=== PATIENT | female | born 1990 | race African-American/Black ===

== ENCOUNTER 2020-04-16 07:29 | Inpatient (IN) | payer OTHER, MEDICAID ==
[~2020-04-16] VITALS: Ht 154.9 cm; Wt 70.3 kg
[2020-04-16 07:43] VITALS: BP 130/86
[2020-04-16 08:07] LABS: ABSOLUTE BASOPHILS 0.1 thou/uL (0.0-0.2); ABSOLUTE EOSINOPHILS 0.1 thou/uL (0.0-0.7); ABSOLUTE LYMPHOCYTES 2.6 thou/uL (0.8-5.3); ABSOLUTE MONOCYTES 0.4 thou/uL (0.0-1.2); ABSOLUTE NEUTROPHILS 4.3 thou/uL (1.6-8.1); BASOPHILS 0.8 %; EOSINOPHILS 0.9 %; HEMATOCRIT 41.8 % (37.0-47.0); HEMOGLOBIN 14.4 gm/dL (12.0-15.0); LYMPHOCYTES 34.5 %; MCH 30.4 pg (26.0-34.0); MCHC 34.6 g/dL (28.0-37.0); MONOCYTES 5.8 %; MPV 9.7 fl. (7.2-11.1); NUCLEATED RBCS 0 /100WBC; PLATELET COUNT* 176 thou/uL (150-400); RBC 4.75 mil/uL (4.20-5.00); RDW-CV 14.9 % (10.5-14.5); WBC 7.5 thou/uL (4.0-11.0)
[2020-04-16 08:16] LABS: CALCIUM 8.5 mg/dL (8.5-10.1); POTASSIUM 3.4 mmol/L (3.5-5.1)
[2020-04-16 08:27] LABS: ALBUMIN 3.4 g/dL (3.4-5.0); TOTAL BILIRUBIN 0.3 mg/dL (<0.1-1.0); TOTAL PROTEIN 7.4 g/dL (6.4-8.2)
[2020-04-16 08:56] LABS: URINE BILIRUBIN NEGATIVE (Negative); URINE BLOOD 2+ (Negative); URINE CLARITY CLEAR; URINE COLOR YELLOW; URINE GLUCOSE-RANDOM NEGATIVE (Negative); URINE KETONES NEGATIVE (Negative); URINE LEUKOCYTES-REFLEX NEGATIVE (Negative); URINE NITRITE-REFLEX NEGATIVE (Negative); URINE PROTEIN NEGATIVE (Negative); URINE SPECIFIC GRAVITY >= 1.030 (1.005-1.030); URINE UROBILINOGEN 0.2 E.U./dl (0.2-1.0)
[2020-04-16 09:18] LABS: SQUAMOUS 0-3 Few /LPF (0-3)
[2020-04-16 09:19] LABS: CASTS None Seen /LPF (None Seen); CRYSTALS None Seen /LPF (None Seen); MUCUS >6 Heavy strn/LPF (None Seen); URINE RBC 3-10 Few /HPF (0-2); URINE WBC-REFLEX 0-5 Rare /HPF (0-5)
--- NOTE | 2020-04-16 10:03 | EKG ---
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: : 1990 Requested By: Conrad Farnsworth Order Number: [id number] MD: Nick Lowery Measurements Intervals [place] Rate: 129 P: 55 [place]: 131 QRS: -15 QRSD: 76 T: -75 QT: 368 QTc: 540 Interpretive Statements Sinus tachycardia Borderline left axis deviation Possible anteroseptal and inferior scars Abnrm T, consider ischemia, anterolateral lds Prolonged QT interval No previous ECG available for comparison Electronically Signed On 04-16-2020 10:02:52 CDT by Nick Lowery [email or web address] <ELECTRONICALLY SIGNED> By: Nick Lowery MD, FAC 04/16/20 1002 0 08 Nick Lowery MD, [facility] /EPI
[2020-04-16 13:35] VITALS: BP 119/84
[2020-04-16 17:30] VITALS: BP 142/95
[2020-04-16 19:30] VITALS: BP 131/91
[2020-04-17 04:14] LABS: HEMATOCRIT 39.6 % (37.0-47.0); HEMOGLOBIN 13.7 gm/dL (12.0-15.0); MCH 30.6 pg (26.0-34.0); MCHC 34.6 g/dL (28.0-37.0); MCV 88.6 fL (80.0-100.0); MPV 9.4 fl. (7.2-11.1); RBC 4.47 mil/uL (4.20-5.00); RDW-CV 15.1 % (10.5-14.5); WBC 7.7 thou/uL (4.0-11.0)
[2020-04-17 05:04] LABS: CALCIUM 8.4 mg/dL (8.5-10.1); CREATININE 0.7 mg/dL (0.6-1.3); MAGNESIUM 1.7 mg/dL (1.8-2.4); POTASSIUM 3.6 mmol/L (3.5-5.1); TOTAL BILIRUBIN 0.5 mg/dL (<0.1-1.0); TOTAL PROTEIN 6.7 g/dL (6.4-8.2)
[2020-04-17 08:00] VITALS: BP 121/89
[2020-04-17 08:08] VITALS: BP 120/86
--- NOTE | 2020-04-17 11:17 | 2DMMODE ---
[place] [address] 2 D/M-MODE ECHOCARDIOGRAM Name: ANASTASIIA PALMER Room: [address] IN [facility]#: [id number] Admission: 04/16/20 Attend Phys: Irving Hutchinson Discharge: Date of : 89 Date of Service: 04/17/20 1116 Report #: [id number] THIS REPORT FOR: cc: FAM - No family physician/PCP JOSE R - No family physician/PCP Nick Lowery MD [facility] ~ APPROVED REPORT Study performed: 04/16/2020 14:53:44 EXAM: Comprehensive 2D, Doppler, and color-flow Echocardiogram Patient Location: In-Patient Room #: er Status: routine BSA: 1.69 HR: 120 bpm BP: 119/84 mmHg Rhythm: NSR Other Information Study Quality: Good Indications Dyspnea 2D Dimensions IVSd: 8.51 (7-11mm) LVOT Diam: 18.23 (18-24mm) LVDd: 68.09 mm PWd: 8.36 (7-11mm) Ascending Ao: 25.27 (22-36mm) LVDs: 57.41 (25-40mm) Aortic Root: 22.81 mm Aortic Valve AoV Peak Jayy.: 1.06 m/s AO Peak Gr.: 4.45 mmHg LVOT Max P.87 mmHg AO Mean Gr.: 2.45 mmHg LVOT Mean P.81 mmHg LVOT Max V: 0.98 m/s AO V2 VTI: 12.47 cm LVOT Mean V: 0.61 m/s SILVIA (VTI): 2.13 cm2 LVOT V1 VTI: 10.17 cm Mitral Valve E/A Ratio: 1.15 MV Decel. Time: 140.34 ms MV E Max Jayy.: 1.66 m/[place] [address] 2 D/M-MODE ECHOCARDIOGRAM Name: ANASTASIIA PALMER Room: [address] .R.#: [id number] Admission: 04/16/20 Attend Phys: Irving Hutchinson Discharge: Date of : 89 Date of Service: 04/17/20 1116 Report #: [id number] MV PHT: 40.70 ms MVA (PHT): 5.41 cm2 TDI E/Lateral E': 15.09 E/Medial E': 15.09 Medial E' Jayy.: 0.11 m/s Lateral E' Jayy.: 0.11 m/s Pulmonary Valve PV Peak Jayy.: 1.42 m/s PV Peak Gr.: 8.11 mmHg Tricuspid Valve RAP Estimate: 5.00 mmHg TR Peak Gr.: 37.55 mmHg RVSP: 42.00 mmHg PA Pressure: 42.00 mmHg Left Ventricle Left ventricle is moderate to severely dilated. There is diffuse severe hypokinesis of left ventricular systolic function There is normal left ventricular wall thickness. Left ventricular ejection fraction is moderate to severely decreased. LVEF is 25-30%. The left ventricular diastolic function is normal. Right Ventricle The right ventricle is normal size. The right ventricular systolic function is normal. Atria Left atrium is moderately dilated. The right atrium size is normal. Aortic Valve Mild aortic valve sclerosis. No aortic regurgitation is present. There is no aortic valvular stenosis. Mitral Valve The mitral valve is normal in structure. Moderate to severe mitral regurgitation No evidence of mitral valve stenosis. Tricuspid Valve The tricuspid valve is normal in structure. Trace tricuspid regurgitation. Moderate pulmonary hypertension. Pulmonic Valve The pulmonary valve is normal in structure. [place] [address] 2 D/M-MODE ECHOCARDIOGRAM Name: ANASTASIIA PALMER Room: [address] IN [facility].#: [id number] Admission: 04/16/20 Attend Phys: Irving Hutchinson Discharge: Date of : 89 Date of Service: 04/17/20 1116 Report #: [id number] Great Vessels The aortic root is normal in size. IVC is normal in size and collapses >50% with inspiration. Pericardium There is no pericardial effusion. <Conclusion> Left ventricle is moderate to severely dilated. Left ventricular ejection fraction is moderate to severely decreased. LVEF is 25-30%. The right ventricle is normal size. Left atrium is moderately dilated. The right atrium size is normal. Mild aortic valve sclerosis. No aortic regurgitation is present. There is no aortic valvular stenosis. The mitral valve is normal in structure. Moderate to severe mitral regurgitation No evidence of mitral valve stenosis. The tricuspid valve is normal in structure. Trace tricuspid regurgitation. Moderate pulmonary hypertension. IVC is normal in size and collapses >50% with inspiration. There is no pericardial effusion. There is diffuse severe hypokinesis of left ventricular systolic function <ELECTRONICALLY SIGNED> By: Nick Lowery MD, FACC 04/17/20 1116 15 15 Nick Lowery MD, FACC /INF
[2020-04-17 16:16] VITALS: BP 110/77
[2020-04-17 19:36] LABS: CALCIUM 8.7 mg/dL (8.5-10.1); MAGNESIUM 1.7 mg/dL (1.8-2.4); POTASSIUM 3.5 mmol/L (3.5-5.1)
[2020-04-17 20:00] VITALS: BP 112/78
[2020-04-18] VITALS: BP 107/76
[2020-04-18 04:00] VITALS: BP 91/59
[2020-04-18 04:59] LABS: HEMATOCRIT 38.5 % (37.0-47.0); HEMOGLOBIN 13.4 gm/dL (12.0-15.0); MCH 31.1 pg (26.0-34.0); MCHC 34.9 g/dL (28.0-37.0); MPV 9.5 fl. (7.2-11.1); RBC 4.32 mil/uL (4.20-5.00); RDW-CV 15.1 % (10.5-14.5); WBC 4.4 thou/uL (4.0-11.0)
[2020-04-18 05:12] LABS: CALCIUM 8.5 mg/dL (8.5-10.1); CREATININE 0.8 mg/dL (0.6-1.3); MAGNESIUM 1.9 mg/dL (1.8-2.4); POTASSIUM 3.4 mmol/L (3.5-5.1)
[2020-04-18 08:00] VITALS: BP 100/72
--- NOTE | 2020-04-18 09:24 | CON ---
[address] [place] [address] CONSULTATION Name: SPENCERANASTASIIA ACEVEDO Room: [address] IN M.R.#: [id number] Admission: 04/16/20 Attend Phys: Irving Man, Discharge: Date of : [birth year] Report #: [id number] THIS REPORT FOR: //name// cc: JOSE R Zazueta family physician/PCP JOSE R Zazueta family physician/PCP ~ THIS REPORT FOR: //name// CC: JOSE R physician/PCP [facility] Irving Man INDICATION: Heart failure. HISTORY OF PRESENT ILLNESS: The patient is a very pleasant 30-year-old French woman who is now living in [place]. She had a daughter 4 months ago. She has a 3-year-old son at home. She had no problems with her . The patient reports orthopnea and paroxysmal nocturnal dyspnea as well as dyspnea on exertion for the past 3-4 days. She is not having stanton chest pain. Chest x-ray shows cardiomegaly and pulmonary vascular congestion. NT-proBNP is elevated at 1700. She has had partial relief of her shortness of breath with a single shot of IV Lasix. PAST MEDICAL HISTORY: Significant only for her 2 deliveries 3 years ago and 4 months ago. She denies any other medical conditions. She is on no medications. ALLERGIES: She was allergic to something she received around the time of her delivery 4 months ago, but was unsure of what medication this was. FAMILY HISTORY: Noncontributory. SOCIAL HISTORY: The patient is . There is no alcohol or tobacco use. She has 2 children at home. REVIEW OF SYSTEMS: A 14-point review of systems is positive for cough, dyspnea on exertion, orthopnea, paroxysmal nocturnal dyspnea, anemia with , otherwise unremarkable. PHYSICAL EXAMINATION: VITAL SIGNS: Blood pressure 134/94, pulse is 130. GENERAL: This is a somewhat anxious young lady in no physical distress. HEENT: Head is normocephalic, atraumatic. Extraocular muscles intact. Mucous membranes are moist. NECK: Shows jugular venous distention. There are no carotid bruits. CHEST: Reveals bilateral crackles to the mid lung gaitan. CARDIAC: Reveals a tachycardic rhythm that is regular. I do not appreciate obvious [place] [address] CONSULTATION Name: ANASTASIIA PALMER Room: [address] IN [facility].#: [id number] Admission: 04/16/20 Attend Phys: Irving Man, Discharge: Date of : [birth year] Report #: [id number] ABDOMEN: Reveals normal bowel sounds. The abdomen is soft, nontender. EXTREMITIES: Shows no edema. Peripheral pulses are 2+ and easily palpable. SKIN: Dry. LABORATORY DATA: A 12-lead EKG shows sinus tachycardia without acute ST or T-wave abnormality. Chest x-ray shows cardiomegaly with pulmonary vascular congestion. Labs are reviewed. Electrolytes are essentially within normal limits with the exception of a potassium of slightly low at 3.4. AST is slightly elevated at 74, ALT is slightly elevated at 79. Troponins are unremarkable. NT-proBNP was 1466. Hemoglobin 14.4, white count 7.5, platelet count 176,000. IMPRESSION AND RECOMMENDATIONS: 1. Acute heart failure, likely systolic. I believe she has an underlying cardiomyopathy. We will initiate medical treatment with carvedilol and losartan. Continue Lasix for symptomatic relief of shortness of breath and volume overload. Echocardiogram ordered and pending. 2. Tachycardia due to decompensated heart failure. We will try to slowly bring down heart rate with low dose beta nicko. 3. by approximately 4 months. She reports her delivery was essentially unremarkable with the exception of some anemia, which is now corrected after 2 iron infusions. <ELECTRONICALLY SIGNED> By: Néstor Neumann MD, FACC 04/18/20 0924 1133 1152Néstor Neumann MD, FACC /nt
[2020-04-18 12:00] VITALS: BP 110/72
--- NOTE | 2020-04-18 17:42 | EKG ---
[place] [address] ELECTROCARDIOGRAM REPORT Name: ANASTASIIA PALMER Room: [address] ADM IN M.R.#: [id number] Admission: 04/16/20 Attend Phys: Irving Hutchinson Discharge: Date of : 89 Date of Service: 04/18/20 1500 Report #: [id number] THIS REPORT FOR: //name// [facility] Test Date: 2020-04-18 Test Time: 15:00:11 Pat Name: ANASTASIIA PALMER Department: Room: [address] Gender: F Cutter In: : 1990 Requested By: Wes Maritn Order Number: [id number] Juan Carlos MD: Néstor Neumann Measurements Intervals [place] Rate: 105 P: 56 [place]: 144 QRS: -14 QRSD: 86 T: 45 QT: 358 QTc: 474 Interpretive Statements Sinus tachycardia Consider right atrial enlargement Abnormal Q suggests inferior infarct Abnrm T, consider ischemia, anterolateral lds Compared to ECG 04/16/2020 08:11:36 Myocardial infarct finding now present Prolonged QT interval no longer present Possible ischemia still present Electronically Signed On 04-18-2020 17:42:13 CDT by Néstor Neumann [email or web address] <ELECTRONICALLY SIGNED> By: Néstor Neumann MD, FACC 04/18/20 1742 1500 1500 Néstor Neumann MD, FAC /EPI
[2020-04-18 20:00] VITALS: BP 106/79
[2020-04-19] VITALS: BP 99/67
[2020-04-19 04:00] VITALS: BP 93/58
[2020-04-19 05:13] LABS: ABSOLUTE EOSINOPHILS 0.1 thou/uL (0.0-0.7); ABSOLUTE LYMPHOCYTES 1.6 thou/uL (0.8-5.3); ABSOLUTE MONOCYTES 0.3 thou/uL (0.0-1.2); ABSOLUTE NEUTROPHILS 2.1 thou/uL (1.6-8.1); BASOPHILS 0.8 %; EOSINOPHILS 1.5 %; HEMATOCRIT 39.2 % (37.0-47.0); HEMOGLOBIN 13.8 gm/dL (12.0-15.0); LYMPHOCYTES 38.3 %; MCH 31.1 pg (26.0-34.0); MCHC 35.2 g/dL (28.0-37.0); MCV 88.2 fL (80.0-100.0); MONOCYTES 7.6 %; MPV 9.4 fl. (7.2-11.1); NUCLEATED RBCS 0 /100WBC; PLATELET COUNT* 154 thou/uL (150-400); POLYS 51.8 %; RBC 4.44 mil/uL (4.20-5.00); RDW-CV 14.5 % (10.5-14.5); WBC 4.1 thou/uL (4.0-11.0)
[2020-04-19 05:32] LABS: ALBUMIN 3.3 g/dL (3.4-5.0); CALCIUM 8.7 mg/dL (8.5-10.1); CREATININE 0.9 mg/dL (0.6-1.3); POTASSIUM 3.7 mmol/L (3.5-5.1); TOTAL BILIRUBIN 0.5 mg/dL (<0.1-1.0); TOTAL PROTEIN 7.4 g/dL (6.4-8.2)
[2020-04-19 09:08] VITALS: BP 113/75
[2020-04-19] MEDS ORDERED: CARVEDILOL12.5 MG PO (09:56)
[2020-04-19] MEDS ORDERED: LASIX 40 MG TAB40 MG PO (09:56)
[2020-04-19] MEDS ORDERED: COZAAR 50 MG TA50 M1 PO (09:56)
[2020-04-19] MEDS ORDERED: KLOR-CON 10 ER10 MEQ PO (09:57)
[2020-04-19] MEDS ORDERED: POTASSIUM20 PO (11:47)
[2020-04-19] MEDS ORDERED: LASIX 40 MG TAB40 M1 PO (11:47)
[2020-04-19 12:11] VITALS: BP 113/75
[2020-04-19 13:41] VITALS: BP 86/66
== END 2020-04-19 13:53 | disposition home or self-care (01) | DRG 291 ==
LOC: M.ERS 07:29 → M.2W 09:36 → M.TBA-ER 09:36 → M.2W 04-17 08:49
PROVIDERS: Emergency Medicine Emergency Medical Services; Internal Medicine; ADMIT Family Medicine; ATTEND Family Medicine
DX: I11.0 Hypertensive heart disease with heart failure (principal); J96.01 Acute respiratory failure with hypoxia; O99.43 Diseases of the circulatory system complicating the puerperium; N39.0 Urinary tract infection, site not specified; I42.0 Dilated cardiomyopathy; Z20.828 Contact with and (suspected) exposure to other viral communicable diseases; E86.0 Dehydration; I34.0 Nonrheumatic mitral (valve) insufficiency; I50.9 Heart failure, unspecified; Z79.899 Other long term (current) drug therapy

== ENCOUNTER → 2020-05-03 | Outpatient (CLI) | payer OTHER, MEDICAID ==
[~2020-05-03] MED LIST: CARVEDILOL12.5 MG PO; COZAAR 50 MG TA50 M1 PO; KLOR-CON 10 ER10 MEQ PO; LASIX 40 MG TAB40 M1 PO; LASIX 40 MG TAB40 MG PO; POTASSIUM20 PO
--- NOTE | 2020-05-03 15:35 | 2DMMODE ---
[place] [address] 2 D/M-MODE ECHOCARDIOGRAM Name: ANASTASIIA PALMER Room: [facility]#: [id number] Admission: 05/03/20 Attend Phys: Michelle Smith RN Discharge: Date of : [birth year] Date of Service: 05/03/20 1535 Report #: [id number] THIS REPORT FOR: cc: FAM - No family physician/PCP FAM - No family physician/PCP Catracho Lawrence MD [facility] ~ APPROVED REPORT Study performed: 05/03/2020 13:39:22 EXAM: Comprehensive 2D, Doppler, and color-flow Echocardiogram Patient Location: Out-Patient BSA: 1.66 HR: 103 bpm BP: 108/80 mmHg Other Information Study Quality: Excellent Indications Congestive Heart Failure Cardiomyopathy 2D Dimensions IVSd: 8.82 (7-11mm) LVOT Diam: 16.45 (18-24mm) LVDd: 61.19 mm PWd: 9.20 (7-11mm) Ascending Ao: 23.49 (22-36mm) LVDs: 53.98 (25-40mm) Aortic Root: 21.07 mm Volumes Left Atrial Volume (Systole) LA ESV Index: 43.20 mL/m2 Aortic Valve AoV Peak Jayy.: 1.00 m/s AO Peak Gr.: 4.02 mmHg LVOT Max P.71 mmHg AO Mean Gr.: 2.45 mmHg LVOT Mean P.28 mmHg LVOT Max V: 0.82 m/s AO V2 VTI: 11.38 cm LVOT Mean V: 0.52 m/s SILVIA (VTI): 1.68 cm2 LVOT V1 VTI: 9.01 [place] [address] 2 D/M-MODE ECHOCARDIOGRAM Name: SPENCER,ANASTASIIA Room: [facility]#: [id number] Admission: 05/03/20 Attend Phys: Michelle Smith RN Discharge: Date of : 89 Date of Service: 05/03/20 1535 Report #: [id number] MV Decel. Time: 143.09 ms MV PHT: 41.50 ms MVA (PHT): 5.30 cm2 TDI Medial E' Jayy.: 0.08 m/s Lateral E' Jayy.: 0.13 m/s Pulmonary Valve PV Peak Jayy.: 1.12 m/s PV Peak Gr.: 5.00 mmHg Tricuspid Valve RAP Estimate: 5.00 mmHg TR Peak Gr.: 27.56 mmHg RVSP: 32.56 mmHg PA Pressure: 32.56 mmHg Left Ventricle Left ventricle is moderately dilated. There is global hypokinesis of the left ventricle. There is normal left ventricular wall thickness. Left ventricular ejection fraction is decreased. LVEF is 15-20%. The left ventricular diastolic function is normal. Right Ventricle The right ventricle is normal size. The right ventricular systolic function is normal. Atria Left atrium is moderately dilated. The right atrium size is normal. Aortic Valve The aortic valve is normal in structure. No aortic regurgitation is present. There is no aortic valvular stenosis. Mitral Valve The mitral valve is normal in structure. Moderately severe mitral regurgitation No evidence of mitral valve stenosis. Tricuspid Valve The tricuspid valve is normal in structure. Mild tricuspid regurgitation. estimated pa pressure 35 mm Hg Pulmonic Valve The pulmonary valve is normal in structure. [place] [address] 2 D/M-MODE ECHOCARDIOGRAM Name: ANASTASIIA PALMER Room: [facility]#: [id number] Admission: 05/03/20 Attend Phys: Michelle Smith RN Discharge: Date of : 89 Date of Service: 05/03/20 1535 Report #: [id number] Great Vessels The aortic root is normal in size. IVC is normal in size and collapses >50% with inspiration. Pericardium There is no pericardial effusion. <Conclusion> Left ventricle is moderately dilated. LVEF is 15-20%. Left atrium is moderately dilated. Moderately severe mitral regurgitation Mild tricuspid regurgitation. estimated pa pressure 35 mm Hg <ELECTRONICALLY SIGNED> By: Catrcaho Lawrence MD, [facility] 05/03/20 1535 1535 1535 Catracho Lawrence MD, [facility] /INF
== END ==
LOC: M.CRD 13:47
PROVIDERS: ATTEND Registered Nurse
DX: I08.8 Other rheumatic multiple valve diseases (principal); I42.8 Other cardiomyopathies

== ENCOUNTER 2020-05-11 16:47 | Emergency (ER) | payer OTHER, MEDICAID ==
[~2020-05-11] VITALS: Ht 157.5 cm; Wt 67.0 kg
[2020-05-11] MEDS ORDERED: LASIX 40 MG TAB40 MG PO (17:02)
[2020-05-11 17:23] LABS: ABSOLUTE LYMPHOCYTES 1.9 thou/uL (0.8-5.3); ABSOLUTE MONOCYTES 0.2 thou/uL (0.0-1.2); ABSOLUTE NEUTROPHILS 2.3 thou/uL (1.6-8.1); BASOPHILS 0.9 %; EOSINOPHILS 0.8 %; HEMATOCRIT 39.9 % (37.0-47.0); HEMOGLOBIN 13.5 gm/dL (12.0-15.0); LYMPHOCYTES 42.6 %; MCH 30.3 pg (26.0-34.0); MCHC 33.9 g/dL (28.0-37.0); MCV 89.5 fL (80.0-100.0); MONOCYTES 4.9 %; MPV 9.1 fl. (7.2-11.1); NUCLEATED RBCS 0 /100WBC; PLATELET COUNT* 165 thou/uL (150-400); POLYS 50.8 %; RBC 4.46 mil/uL (4.20-5.00); RDW-CV 14.7 % (10.5-14.5); WBC 4.6 thou/uL (4.0-11.0)
[2020-05-11 17:34] LABS: CALCIUM 8.7 mg/dL (8.5-10.1); CREATININE 0.8 mg/dL (0.6-1.3); POTASSIUM 3.8 mmol/L (3.5-5.1)
[2020-05-11 17:38] LABS: APTT 28.1 Seconds (25.0-31.3); INR 1.2; PROTIME 12.5 Seconds (9.20-11.50)
[2020-05-11 17:52] LABS: ALBUMIN 3.6 g/dL (3.4-5.0); CK-MB MASS 0.5 ng/mL (<0.5-3.6); TOTAL BILIRUBIN 0.4 mg/dL (<0.1-1.0); TOTAL PROTEIN 7.3 g/dL (6.4-8.2)
[2020-05-11 20:00] VITALS: BP 106/67
--- NOTE | 2020-05-12 09:14 | EKG ---
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: : 1990 Requested By: Oren Rivera Order Number: [id number] MD: Catracho Lawrence Measurements Intervals [place] Rate: 105 P: 47 [place]: 148 QRS: -20 QRSD: 82 T: 21 QT: 308 QTc: 408 Interpretive Statements Sinus tachycardia anterior infarction, old Borderline left axis deviation Borderline abnrm T, anterolateral leads Baseline wander in lead(s) II,III,aVF Compared to ECG 04/18/2020 15:00:11 Possible ischemia no longer present Electronically Signed On 05-12-2020 9:14:07 CDT by Catracho Lawrence [email or web address] <ELECTRONICALLY SIGNED> By: Catracho Lawrence MD, FACC 05/12/20 0914 165 1656 Catracho Lawrence MD, FACC /EPI
== END 2020-05-11 20:00 | disposition home or self-care (01) ==
LOC: M.ERS 16:47
PROVIDERS: Family Medicine
DX: R07.89 Other chest pain (principal); Z98.890 Other specified postprocedural states